=== PATIENT | male | born 1970 | race Caucasian/White ===

== ENCOUNTER 2020-12-07 04:59 | Inpatient (IN) | payer OTHER ==
[~2020-12-07] VITALS: Ht 180.3 cm; Wt 142.4 kg
--- NOTE | ~2020-12-07 | O ---
[facility] [place] [address] OPERATIVE REPORT Name: WALLACEANTHONY Mamadou Room #: 200-I ADM IN M.R.#: [id number] Admission: 12/07/20 Attend Phys: John Moore Discharge: Date of : 66 Report #: [id number] THIS REPORT FOR: cc: NO FAMILY PHYSICIAN or PCP NO FAMILY PHYSICIAN or PCP Juju Hoffman MD ~ DATE OF SERVICE: 12/09/2020 PREOPERATIVE DIAGNOSIS: Right pyocele, possible left pyocele cellulitis. POSTOPERATIVE DIAGNOSIS: Right pyocele, left scrotal and inguinal Gillian's gangrene. SURGEON: Juju Hoffman MD AUTO HEATER MECHANIC: None. OPERATION: Right scrotal incision and drainage of pyocele, left-sided debridement of necrotic tissue of the left anterior and lateral scrotum and inguinal area including the dermis, subcutaneous fat and fascia along with the left posterior scrotum incision and drainage. ANESTHESIA: General endotracheal. ESTIMATED BLOOD LOSS: 50 mL. SPECIMENS REMOVED: Swab culture of the posterior wound and tissue culture of the left anterior wound. DRAINS: Post drain next to the right testicle in addition to a Post looped around the left hemiscrotum and a 16-[place] Elizondo catheter. COMPLICATIONS: None. FINDINGS: The right hemiscrotum did not have evidence of necrosis. The right testicle did have decreased vascularity, but still pink and viable. The left posterior scrotum had purulent drainage, but no necrotic tissue. Incision of the left mid scrotum and left suprapubic area also had viable tissue. When exploring the left posterior wound tracking superiorly along the lateral left hemiscrotum, incision was made and drainage there revealed necrotic tissue. Therefore, this wound was debrided and the foul smelling necrotic tissue was noted to track to the left inguinal area down near the left groin and towards the base of the penis. The tissue that was debrided included 11 x 11 x 5 cm, estimated about 28 cm2 tissue removed and again this included the dermis, subcutaneous and fascial tissue. [address] [address] OPERATIVE REPORT Name: ANTHONY GONSALEZ Room #: 200-I ADM IN .R.#: [id number] Admission: 12/07/20 Attend Phys: John Moore Discharge: Date of : 66 Report #: [id number] INDICATIONS: This 50-year-old gentleman was admitted for cellulitis despite broad spectrum antibiotic. He clinically worsened over the course of the day of 12/08. Therefore, decision after radiologic findings and the patient exam and tachycardia indicated that the emergent surgery was necessary. The ultrasound showed bilateral complicated hydrocele and is worried about a right pyocele based on that information; therefore, the patient elected to proceed with expectant right pyocele drainage, possible left pyocele drainage and possible debridement depending on intraoperative findings. Risks and benefits were discussed with the patient and he gave informed consent to proceed. He was already on broad spectrum antibiotics to cover the procedure. DESCRIPTION OF PROCEDURE: The patient was placed on the operating room table. After anesthesia was induced, he was then placed in frogleg position. His genitalia prepped and draped in the usual sterile fashion. After he was prepped and draped in the usual sterile fashion, the Elizondo catheter was placed. I turned my attention to the left posterior aspect that showed drainage as well. It appeared to be a little drainage tracts also potentially a cm or more superior to the ____ that was draining and therefore the 10 blade scalpel was used to incise the area between these parts. I obtained purulent fluid and this was a culture swab that was obtained and sent to lab. The area was then bluntly palpated and appeared to be tracking along the scrotum superiorly, but no further significant purulence was noted. I then turned my attention to the right side and made a transverse incision over the scrotum. The tissue was quite edematous and there was copious drainage of watery fluid that was not foul smelling. I entered the hydrocele sac that also appeared to be hydrodissected. Again, the testicular tunica was incised to check for viability and the testicular tissue appeared to be pink, although not as vascular as anticipated, but pink and viable. I did not see any purulence; therefore, the tunica was then reapproximated with a running 3-0 chromic. The area was irrigated out. The testicle appeared to try to drop within the incisional wound of the scrotum, now that a lot of the swelling had improved. Therefore, I used the 1/2-inch Daniel drain that I tucked next to the testicle laterally and then using a simple stitch with a 2-0 silk went through the Post and then the inferior incision skin and tied this to keep it in place. The dartos was then approximated to help keep the testicle within the scrotal sac using 2-0 chromic in a running fashion; however, due to the cellulitis and the significant drainage, I did not close the scrotal skin. I then turned my attention to the left side. There was significant erythema in the left inguinal area and therefore a left incision was made over the erythema and just left to the suprapubic area and this tissue appeared to be viable and there was no purulence noted. I then turned my attention to the mid left scrotum that also appeared to be more erythematous and edematous and made an incision over this as well this tissue appeared to be viable and no purulence was noted. Given on the ultrasound earlier today that there was less fluid around the left testicle, I decided to not drain that at this time. To place a Post drain in the scrotum [facility] [address] [place] [address] OPERATIVE REPORT Name: ANTHONY GONSALEZ Room #: 200-I [facility] IN .R.#: [id number] Admission: 12/07/20 Attend Phys: John Moore Discharge: Date of : 66 Report #: [id number] to allow the purulence to drain along the posterior aspect, I used a hemostat to naturally follow the tract infection has established underneath the skin to the anterior aspect of the scrotum. The hemostat easily came to the skin to tent it up and incision with a 15 blade was made over this. Immediately; however, though I noted evangelista, necrotic, nonviable, very foul smelling tissue, therefore I opened up the incision and noted this required debridement. Therefore, using combination of Metzenbaums and scalpel, I debrided the necrotic tissue in the area requiring to take more of the overlying skin as well in order to reach the aspect of the necrosis. As noted in my findings, this did extend in a triangular fashion; however, with ____ appearing to be extending towards the groin area between the leg and scrotal fold. However, though I felt that I had to get more viable tissue and that for the most part, the debridement was complete, although it is likely the patient will need a second look for any further changes. However, I felt that antibiotics may be able to treat the remainder and therefore that would be ____. The incisions were measured. Again, the area that was debrided on the anterior scrotum measured 11 x 11 cm on the superior and inferior parts of the triangle and then the medial triangular edge measured 5 cm, making about a 28 cm2 debrided area. A 2 cm long incision made below this that was viable was 3 cm and on the posterior aspect, the initial drainage was 2 cm long. On the right side, the incision was 3.5 cm long. After the debridement, the 1/2-inch Post was then passed with a hemostat from the inferior wound to the debrided area and both ends were secured together with a 2-0 silk. The areas were irrigated out extensively with saline. The saline-soaked Kerlix was placed over the debrided area in addition to help with any drainage of the left testicle. A second saline infused Kerlix was tucked into that to keep that open to help with drainage. ABDs and mesh underwear was then placed over the incisions. A 1000 mL of urine was in the Elizondo at the end of the procedure. The patient was then placed back in supine position. He was awakened and taken to recovery, still in similar vitals as he had started, but he appeared stable in that regard. I did call his son, Prudencio following the procedure and let him know the findings and that a second look was likely though we would monitor closely. By: [id number] Juju Hoffman MD /nt
[2020-12-07 07:00] VITALS: BP 97/61
[2020-12-07 11:35] VITALS: BP 121/91
[2020-12-07 15:20] VITALS: BP 85/50
--- NOTE | 2020-12-07 17:59 | NUR ---
[age] YEAR OLD MALE ADMITTED TO ORTH ROOM 200. PT WAS A TRANFER FROM [facility] DUE TO SCROTAL CELLULITIS. PT ALERT AND ORIENTED TIMES FOUR. VSS, IVF INFUSING PER ORDER. PT C/O PAIN PRN PAIN MEDICATION GIVEN WITH SOME RELEIF. PT TOLERATES MEDS AND MEALS. PT UP TO THE RESTROOM WITH ASSIST OF ONE. WILL CONTINUE TO MONITOR.
[2020-12-07 18:59] VITALS: BP 122/72
[2020-12-07 20:14] VITALS: BP 133/71
--- NOTE | 2020-12-07 20:15 | NUR ---
Called THERESE Barrett to inform her of patients elevated HR 130-135s. No orders given at this time. I will continue to monitor.
[2020-12-07 22:09] LABS: MCH 31.1 pg (26.0-34.0); MCHC 33.4 g/dL (28.0-37.0); MCV 93.1 fL (80.0-100.0); RBC 4.19 mil/uL (4.50-6.00)
[2020-12-07 22:14] LABS: CALCIUM 7.5 mg/dL (8.5-10.1); CREATININE 1.9 mg/dL (0.7-1.3); MAGNESIUM 1.9 mg/dL (1.8-2.4); POTASSIUM 3.6 mmol/L (3.5-5.1)
[2020-12-08 04:02] VITALS: BP 113/68
[2020-12-08 04:46] LABS: ALBUMIN 2.3 g/dL (3.4-5.0); CALCIUM 7.5 mg/dL (8.5-10.1); CREATININE 1.8 mg/dL (0.7-1.3); MAGNESIUM 2.1 mg/dL (1.8-2.4); POTASSIUM 3.7 mmol/L (3.5-5.1); TOTAL BILIRUBIN 0.7 mg/dL (0.2-1.0); TOTAL PROTEIN 6.3 g/dL (6.4-8.2)
[2020-12-08 05:11] LABS: ABSOLUTE NEUTROPHILS 15.8 thou/uL (1.4-8.2); BASOPHILS 0.5 % (0.0-2.0); EOSINOPHILS 0.5 % (0.0-3.0); HEMATOCRIT 38.6 % (42.0-52.0); LYMPHOCYTES 4.3 % (24.0-44.0); MCH 31.6 pg (26.0-34.0); MCHC 33.6 g/dL (28.0-37.0); PLATELET COUNT 154 thou/uL (150-400); POLYS 88.7 % (36.0-66.0); RBC 4.11 mil/uL (4.50-6.00); RDW 14.1 % (10.5-14.5); WBC 17.8 thou/uL (4.0-11.0)
--- NOTE | 2020-12-08 05:50 | NUR ---
Patient is following plan of care. Pain is tolerable per patient with PRN medications. ICE intermittently to area provides relief. Stable vital signs, elevated HR when patient is in pain. Up with stand by assist. All of the patients concerns were addressed on my shift .
[2020-12-08 07:25] VITALS: BP 109/55
[2020-12-08 11:30] VITALS: BP 127/67
[2020-12-08 14:29] LABS: URINE BILIRUBIN NEGATIVE (Negative); URINE BLOOD NEGATIVE (Negative); URINE CLARITY CLEAR; URINE COLOR YELLOW; URINE GLUCOSE-RANDOM* NEGATIVE (Negative); URINE KETONES 1+ (Negative); URINE LEUKOCYTES NEGATIVE (Negative); URINE NITRITE NEGATIVE (Negative); URINE PROTEIN (DIPSTICK) TRACE (Negative); URINE SPECIFIC GRAVITY 1.025 (1.005-1.035)
[2020-12-08 15:10] VITALS: BP 101/51
--- NOTE | 2020-12-08 16:52 | NUR ---
PT RESTING. PAIN RELITEVELY WELL CONTROLLED. PT AFEBRILE, ADEQUATE UOP, NO BM, APPROPRIATE APPETITE. PT HAS BEEN THOUROUGHLY UPDATED AND EDUCATED ON PT CONDITION AND POC. PT SLOWLY PROGRESSING TOWARDS POC.
[2020-12-08 19:36] VITALS: BP 101/56
[2020-12-09] VITALS (15 sets, daily range): BP systolic 95–128; BP diastolic 51–82
--- NOTE | 2020-12-09 04:47 | NUR ---
RECEIVED THE PATIENT CONSCIOUS AND ORIENTED.ON ROOM AIR BREATHING SPONTANEOUSLY.NOT IN DISTRESS.WITH PROMINENT SCROTAL REDNESS AND SWELLING WHICH HAS INCREASED REPORTED BY THE MORNING STAFF.TESTICULAR ULTRASOUNS WAS DONE AND WAS SEEN BY UROLOGIST.UROLOGIST CAME AND HAS SEEN THE PATIENT AND SPOKE ABOUT URGENT NEED FOR SURGERY.KEPT PATIENT NPO AND COVID SWAB DONE WHICH TURNED OUT NEGATIVE.PATIENT WENT FOR SURGERY AROUND 2220H AND PATIENT CAME BACK IN THE UNIT AROUNF 0130AM.PATIENT HAD RIGHT SCROTAL I AND D OF PYOCELE AND LEFT SIDE DEBRIDEMENT OF NECROTIC TISSUE.PATIENT CAME WITH SUSAN DRAIN AT RIGHT TESTICLE AND SUSAN LOOPED ALONG HEMISCROTUM, SURGIAL SITE IS COVERED WITH DRESSING C/D/I.PATIENT ALSO CAME ON NASAL CANNULA AT 4LPM, SATURATING WELL.ON CAVAZOS CATHETER INTACT DRAINING CLEAR YELLOWISH URINE.CT SCAN WITH ABDOMEN AND PELVIS DONE AND UROLOGIST HAS REVIEWED THE IMAGES.MONITORED PATIENT ACCORDINGLY.PAIN MANAGMENT OBSERVED.KEPT NPO PER UROLOGIST.ALL NEEDS ATTENDED.MONITORED CLOSELY THROUGHOUT THE SHIFT.
--- NOTE | 2020-12-09 07:28 | NUR ---
RELAYED CT SCAN RESULT TO UROLOGIST AND UPDATDE HER OF PATIENT'S PRESENT STATUS.
[2020-12-09 12:02] LABS: HEMATOCRIT 43.3 % (42.0-52.0); HEMOGLOBIN 13.6 gm/dL (14.0-18.0); MCH 30.5 pg (26.0-34.0); MCHC 31.5 g/dL (28.0-37.0); MCV 96.9 fL (80.0-100.0); RBC 4.47 mil/uL (4.50-6.00); RDW 14.6 % (10.5-14.5); WBC 22.2 thou/uL (4.0-11.0)
[2020-12-09 12:27] LABS: CREATININE 1.5 mg/dL (0.7-1.3); POTASSIUM 4.6 mmol/L (3.5-5.1)
[2020-12-09 15:07] LABS: PROT/CREAT RATIO 0.7; URINE CREATININE-RANDOM* 159.5 mg/dL; URINE PROTEIN-RANDOM* 116.3 mg/dL (<11.9)
--- NOTE | 2020-12-09 15:37 | NUR ---
Case opened to follow for dc planning. Cm role introduced to the pt at bedside. 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 He is . He is normally indep with gait and adl's and drives. He does not have a current pcp. He is anticipating another i/d of his scrotal cellulitis tomorrow. He is on iv atb. Cultures are pending. Pt hoping he can go home on po atb. He is open to hh/home infusion/or outpt infusion pending the care team recommendations. Will follow.
[2020-12-10 01:59] VITALS: BP 101/68
--- NOTE | 2020-12-10 02:59 | NUR ---
ASSUMED PT CARE AT 1900, PT IS AWAKE, ALERT AND ORIENTEDX4, SR WITH OCASSIONSL PVCS, PAIN TO THE SCROTAL AREA FAIRLY CONTROLLED BY PRN PAIN MEDICINE, DRESSING AND WOUND PICTURES COMPLETED TO THE SCROTAL AREA, MEDS GIVEN PER JUN, REMAINS ON IV ABX, NO NEEDS AT THIS TIME, NPO FOR POSSIBLE I&D TODAY, PROGRESSING SLOWLY TOWARDS POC
[2020-12-10 04:42] VITALS: BP 114/62
[2020-12-10 07:00] VITALS: BP 105/68
--- NOTE | 2020-12-10 07:56 | HC ---
[facility] [place] [address] [place] [address] CONSULTATION Name: GONSALEZANTHONY Room #: 200-I ADM IN ..#: [id number] Admission: 12/07/20 Attend Phys: John Moore Discharge: Date of : 66 Report #: [id number] THIS REPORT FOR: cc: NO FAMILY PHYSICIAN or PCP NO FAMILY PHYSICIAN or PCP Ole Moy MD ~ DATE OF SERVICE: 12/09/2020 CHIEF COMPLAINT: Perineal infection. HISTORY OF PRESENT ILLNESS: This is a 50-year-old male patient who states he developed a boil in the scrotal region over the weekend, it became increasingly inflamed and painful and was admitted to the hospital. He was seen in consultation by urology and has undergone a right scrotal incision and drainage of a pyocele and left side debridement of necrotic tissue, left anterolateral scrotum and inguinal area. We have been asked to see him with regard to wound care. He states he is having some pain, but feels reasonably okay today. PAST MEDICAL HISTORY: Positive for history of hypertension, history of congestive heart failure, hyperlipidemia and morbid obesity. ALLERGIES: No known drug allergies. MEDICATIONS: Include acetaminophen, ipratropium, albuterol, clindamycin, famotidine, heparin, hydralazine, hydrocodone, linezolid, morphine sulfate, nicotine transdermal, ondansetron, Zosyn, polyethylene glycol. SOCIAL HISTORY: Positive tobacco use. Negative for significant alcohol use. FAMILY HISTORY: Noncontributory. REVIEW OF SYSTEMS: CONSTITUTIONAL: Denies fever, chills, weight loss. NEUROLOGICAL: The patient denies focal weakness or tingling. EYES: The patient denies visual changes, redness or drainage. ENT: The patient denies earache, nasal drainage, sore throat. CARDIOVASCULAR: The patient denies chest pain, palpitations, diaphoresis. PULMONARY: The patient denies cough, shortness of breath. GASTROINTESTINAL: The patient denies nausea, vomiting, diarrhea or abdominal pain. ORTHOPEDIC: The patient has pain and swelling of the extremities. GENITOURINARY: The patient does complain of some pain as well as aware of the surgical wound. Others systems in a 14-point review of systems are negative. [address] [address] CONSULTATION Name: WALLACEANTHONY Mamadou Room #: 200-I [facility].#: [id number] Admission: 12/07/20 Attend Phys: John Moore Discharge: Date of : 66 Report #: [id number] PHYSICAL EXAMINATION: VITAL SIGNS: At this time include temperature 36.3, pulse 79, respiratory rate of 16, blood pressure 115/78. GENERAL: This is a well-built male patient appears to be in minimal distress. HEENT: Head normocephalic. Nose and throat clear. NECK: Supple. LUNGS: Clear. ABDOMEN: Soft, nontender. Perineal region demonstrates surgical wound to the left inguinal region as well as scrotal region. It is relatively clean, granulation appears to be pale. There is some surrounding erythema and induration, although no obvious fluctuance at this time. NEUROLOGIC: He is alert and oriented and appropriate. LABORATORY DATA: Include sodium 136, potassium 4.6, chloride 101, CO2 of 20, BUN 25, creatinine 1.5, glucose 244. White blood cell count 22.2 with a hemoglobin 13.6. CLINICAL IMPRESSION: 1. Necrotizing infection to the inguinal and scrotal region consistent with a Gillian's gangrene. 2. Morbid obesity. 3. Hypertension 4. Hyperglycemia. RECOMMENDATIONS: At this point in time, we will recommend 0.25 strength Dakin's moist gauze packing b.i.d. Additionally, the patient as had abdominal wall fluid collection. Is being evaluated by Dr. Kramer. We will continue to follow closely. We would consider hyperbaric oxygen therapy should he not continue to improve. We will reevaluate again in the morning, and I appreciate being asked to see him in consultation. <ELECTRONICALLY SIGNED> By: Ole Moy MD 12/10/20 [id number] Ole Moy MD /nt
[2020-12-10 11:30] VITALS: BP 101/67
--- NOTE | 2020-12-10 14:40 | NUR ---
Pt had another I/D today. No weekend dc anticipated. Insurance benefits for hh/infusion being checked by [facility]. DC needs are uncertain. Pt with no provider preferences as long as they accept ins. Will follow.
[2020-12-10 15:00] VITALS: BP 123/64
[2020-12-10 19:20] VITALS: BP 126/61
[2020-12-11 05:14] VITALS: BP 136/77
[2020-12-11 05:47] LABS: CALCIUM 8.2 mg/dL (8.5-10.1); CREATININE 1.5 mg/dL (0.7-1.3); MAGNESIUM 1.7 mg/dL (1.8-2.4); POTASSIUM 4.5 mmol/L (3.5-5.1)
[2020-12-11 06:13] LABS: HEMATOCRIT 42.5 % (42.0-52.0); HEMOGLOBIN 13.8 gm/dL (14.0-18.0); MCH 30.8 pg (26.0-34.0); MCHC 32.6 g/dL (28.0-37.0); MCV 94.5 fL (80.0-100.0); PLATELET COUNT 232 thou/uL (150-400); RBC 4.49 mil/uL (4.50-6.00); RDW 14.8 % (10.5-14.5); WBC 14.4 thou/uL (4.0-11.0)
[2020-12-11 07:12] VITALS: BP 128/63
--- NOTE | 2020-12-11 07:32 | NUR ---
ASSUMED CARE FROM DAY SHIFT, ASSESSMENT COMPLETED , PT MEDICATION PRIOR DRESSING TO BE CHANGED. PT SLEPT AFTER MEDICATON GIVEN , IV ANTIBOTIC GIVEN PRESCRIBED. WHEN HOURLY ROUNDING AT 0300 , PT VERY AGIATED AND STATED THAT HE WAS NOTE GETTING THE CARE AND ANTIBOTIC THAT HE IS PRECRIBED. EXPLAINED TO PT THE SCHEDULE OF ANTIBOTIC AND THAT HE WAS SLEEP DURING THE TIMES I CAME INTO THE ROOM. PT THEN APPEAR TO BE CALM AND WAS VERY APOLOGETIC AND NEW IV PLACED ,WHEN PRESENT IV HAD INFILTATED. PT AGAIN UNDERSTANDING OF THE STITUATION ,CARE THEN TURNED OVER TO DAY DHIFT RN.
[2020-12-11 07:40] LABS: ABSOLUTE NEUTROPHILS 12.1 thou/uL (1.4-8.2); METAMYELOCYTES 2 %; PLATELET ESTIMATE NORMAL
[2020-12-11 15:27] VITALS: BP 151/77
--- NOTE | 2020-12-11 18:25 | NUR ---
End of shift note: Pt remained safe and comfortable during the shift. Pain well controlled, afebrile, Vitals stable , NO lab concerns, wound care and dressing change done, meds given as ordered. Pt had one small emesis ( unobserved), PRN zofran given for N/V. I&O's WNL. Pt geneal status improved, expecting I&D follow up. No other concerns.
[2020-12-11 20:15] VITALS: BP 167/90
[2020-12-12 03:55] VITALS: BP 154/85
--- NOTE | 2020-12-12 04:03 | NUR ---
ASSUMED CARE OF PT AT SHIFT CHANGE. PT IS AOX4 AND LETS NEEDS BE KNOWN. PT REPORTED SCROTAL PAIN; PRN PAIN MEDS PROVIDED. DRESSING CHANGED PER ORDER. ASSESSMENT CHARTED. CAVAZOS IN PLACE AND PATIENT. PT WAS ABLE TO GET COMFORTABLE AND SLEEP PART OF THE SHIFT. ABX TREATMENT CONTINUED. PT WAS ABLE TO GET COMFORTABLE AND SLEEP PART OF THE SHIFT. WILL CONTINUWE TO MONITOR.
[2020-12-12 06:37] VITALS: BP 138/104
--- NOTE | 2020-12-12 08:23 | NUR ---
PT TRANSFERED TO 4S THIS MORNING. BP ELEVATED. TKO IVF RUNNING. PT APPEARS COMFORTABLE AND CALM. GAVE REPORT TO ONCOMING RN THAT WILL LOOK INTO PT BP AND GET PT ADMITTED.
[2020-12-12 08:41] VITALS: BP 148/104
[2020-12-12 13:30] LABS: HEMATOCRIT 40.1 % (42.0-52.0); HEMOGLOBIN 13.1 gm/dL (14.0-18.0); MCH 30.6 pg (26.0-34.0); MCHC 32.7 g/dL (28.0-37.0); MCV 93.7 fL (80.0-100.0); RBC 4.28 mil/uL (4.50-6.00); RDW 14.6 % (10.5-14.5); WBC 14.8 thou/uL (4.0-11.0)
--- NOTE | 2020-12-12 15:11 | NUR ---
ASSUMED PT CARE THIS AM. PT IS ALERT & ORIENTED X4. PT HAS MIDLINE ON R UA. PT IS UP WITH ASSIST X1 WITH WALKER. PT HAS CAVAZOS CATH IN PLACE. PT C/O OF PAIN AND GIVEN PAIN MEDICATION PER PT REQUEST. PT TOLERATED DIET AND MEDICATION WELL. NO C/O OF NAUSEA AND VOMITING. WILL CONTINUE TO MONITOR PT. FOLLOW POC.
--- NOTE | 2020-12-12 15:11 | NUR ---
A #4F POWER MIDLINE WAS PLACED PER HOSPITAL POLICY. THE RIGHT BASILIC WAS WIDLEY PATENT AT 29% OF VEIN VS CATHETER. THE LINE WAS TRIMMED TO 12CM AND ADVANCED WITHOUT DIFFICULTY. LINE SECURED AND RELEASED FOR USE
[2020-12-12 15:52] VITALS: BP 170/99
[2020-12-12 20:05] VITALS: BP 159/98
[2020-12-13 05:24] VITALS: BP 150/100
[2020-12-13 06:14] LABS: HEMATOCRIT 38.7 % (42.0-52.0); HEMOGLOBIN 12.8 gm/dL (14.0-18.0); MCH 30.9 pg (26.0-34.0); MCV 93.9 fL (80.0-100.0); RBC 4.12 mil/uL (4.50-6.00); RDW 14.5 % (10.5-14.5); WBC 14.5 thou/uL (4.0-11.0)
[2020-12-13 06:23] LABS: CALCIUM 8.1 mg/dL (8.5-10.1); CREATININE 1.2 mg/dL (0.7-1.3); POTASSIUM 3.7 mmol/L (3.5-5.1)
[2020-12-13 07:12] VITALS: BP 134/88
--- NOTE | 2020-12-13 07:15 | NUR ---
PT MAKING SLOW PROGRESS TOWARDS GOALS. REQUESTED AND GIVEN IV DILAUDID PRIOR TO WOUND CARE CHANGE. PT ABLE TO TOLERATE WOUND CARE TO GROIN. X1 DOSE OF LORTAB OVERNIGHT.
[2020-12-13 15:18] VITALS: BP 143/95
--- NOTE | 2020-12-13 16:08 | NUR ---
PT ASSESSED AT START OF SHIFT. PAIN CONTROLLED BY MEDS. STATES DSNG CHANGE MUCH LESS PAINFUL THAN YESTERDAY. UP AD DELFINO IN ROOM. SURGEON IN THIS AFTERNOON TO CHECK WOUND. IV ANTIBIOTICS PER ORDERS.
[2020-12-13 19:15] VITALS: BP 144/89
--- NOTE | 2020-12-14 01:20 | NUR ---
ASSUMED PT CARE AT 1900.PT WAS OBSERVED LYING ON HIS R SIDE WITH HIS EYES OPEN AT SHIFT CHANGE.PT C/O PAIN TO HIS L GROIN,MANAGED WITH MED.DRSG TO HIS GROIN COMPLETED AFTER DILAUDID PER PT'S REQUEST.NO BM THIS SHIF.PT WHEEZING.NON PRODUCTIVE COUGH NOTED.PT ABLE TO MAKE HIS NEEDS KNOWN.CALL LIGHT WITHIN REACH.
[2020-12-14 03:30] VITALS: BP 135/82
--- NOTE | 2020-12-14 09:48 | NUR ---
Assumed care of pt at 0700. Pt a&ox4. Pain controlled with prn pain medications. Dressing changed. Foster drain removed by urology team. Will remove forte catheter this am. Midline leaking. IV team aware. Call light within reach. Pt calls appropriately. Will continue to monitor.
--- NOTE | 2020-12-14 13:15 | NUR ---
Pt seen for LOS day 7. Pt admitted with L scrotal pain, now s.p surgical debridement of scratl abscess. On ABT. Intake 100% on heart healthy diet. BMI 43, extreme class III obesity. Pt not available to offer nutrition education r/t weight management at time of visit. RD available for education r/t healthy weight management strategies prio to d/c if pt desires. Low nutrition risk at this time.
--- NOTE | 2020-12-14 13:30 | NUR ---
CHYNA reviewed chart and spoke with nursing and attending physician. Pt was transferred to from CCU over the weekend. Pt remains on IV abx. Elizondo catheter discontinued earlier today. Voiding trial to be completed. SW met with pt at bedside to discuss discharge plan. Pt is agreeable with going home with and Home IV abx if needed. Midline leaking. SW updated liaisons with [facility]. Pt with BID dressing changes. Awaiting input from physicians regarding discharge needs. CHYNA is following to assist as needed with discharge planning.
--- NOTE | 2020-12-14 15:34 | NUR ---
VAT CONSULTED FOR PICC PLACEMENT AFTER ML LEAKED. PT'S LABS,MEDS,HX,ORDER AND CONSENT VERIFIED. DISCUSSED BENEFITS AND RISK OF PICC WITH PT, VERBALIZED UNDERSTANDING. MARIUSZ BASILIC WAS WIDELY PATENT WITH USG, 4FR SL POWER PICC 55CM LENGTH INSERTED TO 1CM EXTERNAL. PLACEMENT CONFIRMED WITH PEAKED P-WAVES ON C3 WAVE. PICC RELEASED FOR IMMEDIATE USE PER PROTOCOL TO [place]. PT TOLERATED WELL. WALLET CARD GIVEN TO PT.
[2020-12-14 20:10] VITALS: BP 151/95
--- NOTE | 2020-12-15 03:46 | NUR ---
PT WAS IN A GOOD MOOD AT START OF SHIFT.PAIN MANAGED WITH PO AND IV MED.PT UP WITH SBA T0 THE TOILET.PT CONT ON IV ABX.DRSG CHANGE COMPLETED WITH MIN PAIN.PT SLEEPING ON HIS BED AT THIS TIME.POSSIBLE DC LATER TODAY.CALL LIGHT WITHIN REACH.
[2020-12-15 05:27] LABS: HEMATOCRIT 36.5 % (42.0-52.0); HEMOGLOBIN 12.3 gm/dL (14.0-18.0); MCH 31.9 pg (26.0-34.0); MCHC 33.8 g/dL (28.0-37.0); MCV 94.5 fL (80.0-100.0); PLATELET COUNT 249 thou/uL (150-400); RBC 3.87 mil/uL (4.50-6.00); RDW 14.8 % (10.5-14.5); WBC 11.5 thou/uL (4.0-11.0)
[2020-12-15 05:31] LABS: ALBUMIN 2.3 g/dL (3.4-5.0); CREATININE 1.3 mg/dL (0.7-1.3); TOTAL BILIRUBIN 0.4 mg/dL (0.2-1.0); TOTAL PROTEIN 6.4 g/dL (6.4-8.2)
[2020-12-15 06:57] LABS: ABSOLUTE NEUTROPHILS 7.9 thou/uL (1.4-8.2); METAMYELOCYTES 5 %; MYELOCYTES 4 %
[2020-12-15 06:58] LABS: ANISOCYTOSIS 1+
[2020-12-15 07:14] VITALS: BP 160/108
--- NOTE | 2020-12-15 10:05 | NUR ---
Assumed care of pt at 0700. Pt a&ox4. Pain controlled with prn pain medications. Dressing c/d/i. Will change dressing this am. IV antibiotics infusing. Possible d/c to home with outpt IV infusions. Call light within reach. Pt calls appropriately. Will continue to monitor.
[2020-12-15] MEDS ORDERED: ACETAMINOPHEN325 M1 PO (13:09)
[2020-12-15] MEDS ORDERED: MIRALAX17 GM PO (13:09)
[2020-12-15] MEDS ORDERED: HYDROCODON-ACE1 EAC7 PO (13:09)
[2020-12-15] MEDS ORDERED: ZOSYN 3.373.375 GM/1 IV (13:09)
[2020-12-15] MEDS ORDERED: Nicotine Transdermal TRANSDERM (13:09)
[2020-12-15] MEDS ORDERED: ZOSYN 4.54.5 GM/101 IV (13:20)
[2020-12-15 14:09] VITALS: BP 160/108
[2020-12-15 14:35] VITALS: BP 160/108
--- NOTE | 2020-12-15 14:36 | NUR ---
Final orders faxed to [facility] home infusion. Flakita will be out to do a teach visit at 3pm today. [facility] liason here and confirmed dc orders for daily wound care as well. Dosing schedule is so he can leave today after his 4pm dose.
[2020-12-15 15:30] VITALS: BP 177/103
[2020-12-15 17:36] VITALS: BP 160/108
[2020-12-15 19:04] VITALS: BP 156/105
--- NOTE | 2020-12-15 21:48 | NUR ---
PT WAS FRUSTRATED AND NOT HAPPY AT SHIFT CHANGE.PT VOICED THAT HE IS WORRIED THAT HE MIGHT NOT MAKE IT HOME TONIGHT PLANNED,EMOTIONAL SUPPORT GIVEN.PT VERY APOLOGETIC LATER ON ,STATED THAT HE DOESN'T WANT HIS SON TO BE KEPT WAITING WHEN HE GETS HERE.DRSG CHANGE COMPLETED AFTER ADMINISTERING IV PAIN MED AND HIS HS MEDS.PT DISCHARGED WHEN HIS IV ZOSYN WAS COMPLETED.PT LEFT WITH ALL HIS PERSONAL BELONGINGS IN A STABLE CONDITION.
== END 2020-12-15 20:53 | disposition home health service (06) | DRG 853 ==
LOC: 2N 04:59 → 4S 12-12 06:15
PROVIDERS: Hospitalist; Nurse Practitioner; Nurse Practitioner Family; Physician Assistant; Specialist; Urology; ADMIT Hospitalist; ATTEND Hospitalist
DX: A41.9 Sepsis, unspecified organism (principal); N17.0 Acute kidney failure with tubular necrosis; E43 Unspecified severe protein-calorie malnutrition; Z68.41 Body mass index [BMI] 40.0-44.9, adult; I13.0 Hypertensive heart and chronic kidney disease with heart failure and stage 1 through stage 4 chronic kidney disease, or unspecified chronic kidney disease; I50.32 Chronic diastolic (congestive) heart failure; N49.3 Fournier gangrene; N49.2 Inflammatory disorders of scrotum; N50.89 Other specified disorders of the male genital organs; Z20.822 Contact with and (suspected) exposure to COVID-19; E78.5 Hyperlipidemia, unspecified; E66.01 Morbid (severe) obesity due to excess calories; F17.210 Nicotine dependence, cigarettes, uncomplicated; N18.9 Chronic kidney disease, unspecified; E11.22 Type 2 diabetes mellitus with diabetic chronic kidney disease; N43.3 Hydrocele, unspecified; R50.9 Fever, unspecified; R00.0 Tachycardia, unspecified; E11.65 Type 2 diabetes mellitus with hyperglycemia; Z79.899 Other long term (current) drug therapy; Z71.6 Tobacco abuse counseling
CPT/HCPCS: 10081; 10100; 10195; 27000; 50010; 50101; 50386; 50403; 56524; 56526; 56527; 62110; 62900; 70005

== ENCOUNTER → 2021-01-13 | Outpatient (CLI) | payer OTHER ==
[~2021-01-13] MED LIST: ACETAMINOPHEN325 M1 PO; HYDROCODON-ACE1 EAC7 PO; MIRALAX17 GM PO; Nicotine Transdermal TRANSDERM; ZOSYN 3.373.375 GM/1 IV; ZOSYN 4.54.5 GM/101 IV
== END ==
LOC: HYPER 09:35
PROVIDERS: ATTEND Emergency Medicine
DX: T81.31XD Disruption of external operation (surgical) wound, not elsewhere classified, subsequent encounter (principal); L98.492 Non-pressure chronic ulcer of skin of other sites with fat layer exposed; S31.30XD Unspecified open wound of scrotum and testes, subsequent encounter; N49.3 Fournier gangrene; L03.818 Cellulitis of other sites; M72.6 Necrotizing fasciitis; N49.2 Inflammatory disorders of scrotum; N50.82 Scrotal pain; E78.5 Hyperlipidemia, unspecified; E66.01 Morbid (severe) obesity due to excess calories; R73.9 Hyperglycemia, unspecified; I11.0 Hypertensive heart disease with heart failure; I50.9 Heart failure, unspecified; F17.290 Nicotine dependence, other tobacco product, uncomplicated; Z68.39 Body mass index [BMI] 39.0-39.9, adult; X58.XXXD Exposure to other specified factors, subsequent encounter; Y83.8 Other surgical procedures as the cause of abnormal reaction of the patient, or of later complication, without mention of misadventure at the time of the procedure

== ENCOUNTER → 2021-01-27 | Outpatient (CLI) | payer OTHER | LOC: HYPER 07:53 | PROVIDERS: ATTEND Emergency Medicine | DX: T81.31XD Disruption of external operation (surgical) wound, not elsewhere classified, subsequent encounter (principal); L98.492 Non-pressure chronic ulcer of skin of other sites with fat layer exposed; S31.30XD Unspecified open wound of scrotum and testes, subsequent encounter; N49.3 Fournier gangrene; L03.818 Cellulitis of other sites; M72.6 Necrotizing fasciitis; N49.2 Inflammatory disorders of scrotum; N50.82 Scrotal pain; E78.5 Hyperlipidemia, unspecified; E66.01 Morbid (severe) obesity due to excess calories; R73.9 Hyperglycemia, unspecified; I11.0 Hypertensive heart disease with heart failure; I50.9 Heart failure, unspecified; F17.290 Nicotine dependence, other tobacco product, uncomplicated; Z68.39 Body mass index [BMI] 39.0-39.9, adult; X58.XXXD Exposure to other specified factors, subsequent encounter; Y83.8 Other surgical procedures as the cause of abnormal reaction of the patient, or of later complication, without mention of misadventure at the time of the procedure ==

== ENCOUNTER → 2021-02-09 | Outpatient (CLI) | payer OTHER | LOC: HYPER 08:46 | PROVIDERS: ATTEND Emergency Medicine | DX: T81.31XD Disruption of external operation (surgical) wound, not elsewhere classified, subsequent encounter (principal); S31.30XD Unspecified open wound of scrotum and testes, subsequent encounter; L98.492 Non-pressure chronic ulcer of skin of other sites with fat layer exposed; L84 Corns and callosities; N49.3 Fournier gangrene; L03.818 Cellulitis of other sites; M72.6 Necrotizing fasciitis; N49.2 Inflammatory disorders of scrotum; N50.82 Scrotal pain; E78.5 Hyperlipidemia, unspecified; E66.01 Morbid (severe) obesity due to excess calories; R73.9 Hyperglycemia, unspecified; I11.0 Hypertensive heart disease with heart failure; I50.9 Heart failure, unspecified; F17.290 Nicotine dependence, other tobacco product, uncomplicated; Z68.39 Body mass index [BMI] 39.0-39.9, adult; X58.XXXD Exposure to other specified factors, subsequent encounter; Y83.8 Other surgical procedures as the cause of abnormal reaction of the patient, or of later complication, without mention of misadventure at the time of the procedure ==